=== PATIENT | female | born 1980 | race Caucasian/White ===

== ENCOUNTER 2021-05-10 10:15 | Outpatient (CLI) | payer BC, SELFPAY ==
--- NOTE | ~2021-05-10 | MM_ITS ---
EXAMINATION: MM screening nain BI w chiquita HISTORY: Screening TECHNIQUE: Craniocaudal and mediolateral oblique 3-D tomosynthesis images were obtained and synthetic 2-D images were generated. CAD analysis was submitted and interpreted. COMPARISON: No prior mammogram is available for comparison at this institution. BREAST PARENCHYMAL COMPOSITION: Breast composed of scattered areas of fibroglandular density FINDINGS: There are subareolar asymmetries in both breasts. There are no suspicious calcifications or focal architectural distortion. IMPRESSION: 1. Bilateral subareolar asymmetries. 2. Additional mammographic views and possible breast ultrasound are recommended. BI-RADS Category 0: Incomplete: Needs additional imaging evaluation. Reviewed, dictated and finalized at location A. AL EQUIPMENT INSTALLER AND SERVICER IMPRESSION: 1. Bilateral subareolar asymmetries. 2. Additional mammographic views and possible breast ultrasound are recommended . BI-RADS Category 0: Incomplete: Needs additional imaging evaluation.
== END 2021-05-10 10:16 | disposition home or self-care (01) ==
LOC: ANHIMG 10:17
PROVIDERS: PCP Family Medicine; Visit Provider Family Medicine
DX: Z12.31 Encounter for screening mammogram for malignant neoplasm of breast (principal); R92.8 Other abnormal and inconclusive findings on diagnostic imaging of breast
CPT/HCPCS: 77063; 77067

== ENCOUNTER 2021-05-27 12:31 | Outpatient (CLI) | payer BC, SELFPAY ==
--- NOTE | ~2021-05-27 | MMUS_ITS ---
EXAMINATION: MM diagnostic nain BI w chiquita, US breast BI complete HISTORY: Bilateral subareolar asymmetries reported on 05/10/2021 screening mammogram TECHNIQUE: Additional 3-D tomosynthesis images of both breasts were performed and synthetic 2-D image s were generated. CAD analysis was submitted and interpreted. High resolution complete bilateral renetta st ultrasound including all 4 quadrants and subareolar areas was performed. COMPARISON: 05/10/2021 bilateral screening mammogram FINDINGS: MAMMOGRAPHIC FINDINGS: There is a benign appearing approximately 4 x 5 mm circumscribed opacity in the inferior medial subar eolar area of the left breast. No suspicious mass, architectural distortion, malignant calcification, skin thickening or retraction of either breast is evident. ULTRASOUND: There is a 5 mm circumscribed sonolucency with through transmission posterior enhancement in the suba reolar area at 6:00, consistent with subareolar cyst. No suspicious mass or shadowing of either breast is noted otherwise. IMPRESSION: 1. Benign finding 2. Routine mammographic screening is recommended. BI-RADS Category 2: Benign finding(s). Reviewed, dictated and finalized at location A. IMPRESSION: 1. Benign finding 2. Routine mammographic screening is recommended. BI-RADS Category 2: Benign finding(s).
== END 2021-05-27 12:32 | disposition home or self-care (01) ==
PROVIDERS: PCP Family Medicine; Visit Provider Nurse Practitioner Gerontology
DX: R92.8 Other abnormal and inconclusive findings on diagnostic imaging of breast (principal)
CPT/HCPCS: 76641; 77062; 77066; G0279

== ENCOUNTER 2023-05-31 14:40 | Outpatient (CLI) | payer BC, SELFPAY ==
--- NOTE | ~2023-05-31 | NM_ITS ---
EXAMINATION: NM thyroid scan w uptake DATE: 06/01/2023 16:09 INDICATION: Other specified abnormal findings of blood chemistry. COMPARISON: None. TECHNIQUE: 334 microcuries [id number] was administered orally in capsule form. Scintigraphic images of th e thyroid gland were obtained at 24 hours. Thyroid uptake was calculated by the technologist. FINDINGS: The thyroid uptake is 18.8% (normal 10-30%), with the right lobe measuring 13.6% uptake and the left 5.4%. There is a masslike region of increased uptake in the mid to cephalad right lower lobe suggesti ve of possible hyperfunctioning nodule IMPRESSION: 1. Normal 24-hour thyroid iodine uptake. 2. Asymmetric thyroid scintigraphy with masslike region of more prominent activity at the mid to supe rior right thyroid lobe which suggests a possible hyperfunctioning nodule. Consider thyroid ultrasoun d for correlation. Reviewed, dictated and finalized at location A. IMPRESSION: 1. Normal 24-hour thyroid iodine uptake. 2. Asymmetric thyroid scintigraphy with masslike region of more prominent activ ity at the mid to superior right thyroid lobe which suggests a possible hyperfu nctioning nodule. Consider thyroid ultrasound for correlation.
== END 2023-05-31 14:41 | disposition home or self-care (01) ==
LOC: ANHIMG 14:46
PROVIDERS: PCP Family Medicine; Visit Provider Physician Assistant
DX: R79.89 Other specified abnormal findings of blood chemistry (principal)
CPT/HCPCS: 78014; A9516

== ENCOUNTER 2024-01-21 13:13 | Outpatient (CLI) | payer BC, SELFPAY ==
--- NOTE | ~2024-01-21 | US_ITS ---
EXAMINATION: 1. US FNA w image guidance 2. US FNA additional DATE: 01/21/2024 14:19 INDICATION: Nontoxic single thyroid nodule. TECHNIQUE: The procedure and its benefits and risks were discussed with the patient. Risks specifically discusse d included bleeding. The patient verbalized understanding of the risks and agreed to proceed. The nec k was prepped and draped in the usual sterile manner. 1% lidocaine was used for local anesthesia. 5 passes were made with a 25G needle into the lesion in right thyroid lobe under ultrasound guidance. The neck was prepped and draped in the usual sterile manner. 1% lidocaine was used for local anesthe sultana. 5 passes were made with a 25G needle into the lesion in left thyroid lobe under ultrasound guid ance. There were no immediate complications. FINDINGS: Grayscale ultrasound images demonstrate needles advanced into a 3.0 cm nodule in right thyroid lobe f or biopsy. Grayscale ultrasound images demonstrate needles advanced into a 1.9 cm nodule in left thyr oid lobe for biopsy. IMPRESSION: 1. Ultrasound-guided fine needle aspiration of a 3.0 cm nodule in right thyroid lobe. 2. Ultrasound-guided fine needle aspiration of a 1.9 cm nodule in left thyroid lobe. Reviewed, dictated and finalized at location A. NT TECHNOLOGIES ANALYST IMPRESSION: 1. Ultrasound-guided fine needle aspiration of a 3.0 cm nodule in right thyroi d lobe. 2. Ultrasound-guided fine needle aspiration of a 1.9 cm nodule in left thyroid lobe.
== END 2024-01-21 13:14 | disposition home or self-care (01) ==
PROVIDERS: PCP Family Medicine; Visit Provider Physician Assistant
DX: E04.1 Nontoxic single thyroid nodule (principal)
CPT/HCPCS: 10005; 10006; 88172; 88173; 88305

== ENCOUNTER 2024-04-11 15:27 | Outpatient (CLI) | payer BC, SELFPAY ==
--- NOTE | ~2024-04-11 | MM_ITS ---
EXAMINATION: MM screening nain BI w chiquita HISTORY: Screening TECHNIQUE: Craniocaudal and mediolateral oblique 3-D tomosynthesis images were obtained and synthetic 2-D images were generated. CAD analysis was submitted and interpreted. COMPARISON: Comparison to multiple prior studies sequentially, with oldest reviewed study dated 07/2021. BREAST PARENCHYMAL COMPOSITION: Not dense: There are scattered areas of fibroglandular density. FINDINGS: There is no evidence of suspicious mass, calcification, or architectural distortion to sugg est malignancy in either breast. There has been no suspicious interval change. IMPRESSION: 1. No mammographic evidence of malignancy. 2. Recommend routine screening mammography in one year. BI-RADS Category 1: Negative Reviewed, dictated and finalized at location B. [employer]
--- OUTSIDE RECORDS SUMMARY | 2024-04-11 15:31 | XMS_ITS | Referral Summary ---
Author Organization [facility] Physician Office Building [address] [place] [id number] Care Team Providers Care Starbucks Clerk Name Role Phone Shefali Araujo Primary Care Provid er Allergies No known active allergies Medications clobetasoL (TEMOVATE) 0.05 % cream APPLY TOPICALLY TO THE AFFECTED AREA DAILY 4 Active hydroCHLOROthia zide (HYDRODIURIL) 50 mg tablet Take 1 tablet (50 mg total) by mouth daily 4 Active irbesartan (AVAPRO) 300 mg tablet Take 1 tablet (300 mg total) by mouth daily 4 Active metFORMIN (GLUCOPHAGE) 1,000 mg tablet Take 1 tablet (1,000 mg total) by mouth 2 (two) times a day 4 Active metoprolol tartrate (LOPRESSOR) 25 mg immediate release tablet Take 1 tablet (25 mg total) by mouth 2 (two) times a day 4 Active metoprolol tartrate (LOPRESSOR) 25 mg immediate release tablet Take 1 tablet (25 mg total) by mouth 2 (two) times a day 4 Active rosuvastatin (CRESTOR) 5 mg tablet Take 1 tablet (5 mg total) by mouth nightly at bedtime. 4 Active rosuvastatin (CRESTOR) 5 mg tablet Take 1 tablet (5 mg total) by mouth nightly at bedtime. 4 Active spironolactone (ALDACTONE) 25 mg tablet Take 1 tablet (25 mg total) by mouth daily 4 Active semaglutide 0.25 mg or 0.5 mg (2 mg/3 mL) pen injector injectionIndica tions:Type 2 diabetes mellitus with hyperglycemia, without long-term current use of insulin (HCC) Inject 0.5 mg under the skin every 7 days 6 mL 4 Active Active Problems Problem Noted Date Diagnosed Date Subclinical hyperthyroidism 09/30/2023 Assessment & Plan (09/30/2023 4:27 PM CDT): With a possible right hot nodule I explained to the patient the younger patient has subclinical hyperthyroidism would not have indication for treatment Will update TSH, free T4 and free T3 As soon as free T4 and free T3 stay normal, there would would be no indication for treatment Thyroid ultrasound also requested to correlate with the possible hot thyroid area seen on thyroid scan Type 2 diabetes mellitus wit h hyperglycemia, without long-term current use of insulin 09/30/2023 Assessment & Plan (09/30/2023 4:28 PM CDT): Importance of diet and exercise was discussed Lowest metformin a 1000 mg once a day Start Ozempic 0.25 mg weekly x4 weeks and then increase to 0.5 mg weekly We provided the patient with 2 pen samples and she will call us in 4 to 6 weeks to let us know if she is tolerating well location before sending prescription Social History Tobacco Use Types Packs/Day Years Used Date Smoking Tobacco: Never Smokeless Tobacco: Never Tobacco Cessation:Counseling Given: Not Answered AUDIT-C Answer Date Recorded Q1: How often do you have a drink containing alcohol? Never 09/30/2023 Q2: How many drinks containi ng alcohol do you have on a typical day when you are drinking? Patient does not drink Q3: How often do you have si x or more drinks on one occasion? Never 09/30/2023 PHQ-2 Answer Date Recorded PHQ-2 Total Score (If total score is 3 or more points, staff should administer the PHQ-9) 0 09/30/2023 Personal Safety Answer Date Recorded Getting School Help Needed Not on file 06/08 Comments Unknown Sex and Gender Information Value Date Recorded Sex Assigned at Not on file Legal Sex Female 1:47 PM CDT Gender Identity Not on file Sexual Orientation Straight 09/30/2023 1: 53 PM CDT Last Filed Vital Signs Vital Sign Reading Time Taken Comments Blood Pressure 108/64 09/30/2023 1:53 PM CDT Pulse 72 09/30/2023 1:53 PM CDT Temperature - - Respiratory Rate 18 09/30/2023 1:53 PM CDT Oxygen Saturation - - Inhaled Oxygen Concentration - - Weight 103.6 kg (228 lb 6.4 oz) 09/30/2023 1:53 PM CDT Height 170.2 cm (5' 7 ) 09/30/2023 1:53 PM CDT Body Mass Index 35.77 09/30/2023 1:53 PM CDT Plan of Treatment Not on file Insurance [employer] Care Teams [employer] Clerk Relationship Specialty Start Date End Date Shefali Araujo PA [address] [place], [place] [phone] PCP - General Physician Room Server 06/09/23
--- OUTSIDE RECORDS SUMMARY | 2024-04-11 15:31 | XMS_ITS | Clinical Summary ---
Author Organization [facility] Physician Office Building [address] [place] [id number] Care Team Providers Care Delivery Rep Name Role Phone Shefali Araujo Primary Care [...] Orientation Straight 09/30/2023 1: 53 PM CDT Obstetrics History Last Filed Vital Signs Vital Sign Reading [...] 09/30/2023 1:53 PM CDT Plan of Treatment Health Maintenance Due Date Last Done Comments Albumin Creatinine Ratio, Urine 1979 Breast Cancer Screening-Mammogram 1979 Cervical Cancer Screening 1979 Colon Cancer Screening-Colonoscopy 1979 Hemoglobin A1C 1979 Hepatitis C Screening 1979 eGFR 1979 Dilated Eye Exam 1979 Foot Exam 1979 Lipid Panel 1979 Pneumococcal vaccine <65 (1 of 2 - PCV) 1985 DTaP/Tdap/Td Vaccine (1 - Tdap) 1990 Hepatitis B Screening 1997 Regular Well Visit/Exam 18-64 1997 Covid-19 Vaccine (2 - 2023-2 5 season) 2023 05/12/2020 Influenza Vaccine (#1) 2023 12/31/2019 Depression Screening 09/29/2024 09/30/2023 HPV Vaccines Aged Out No longer eligi ble based on patient's age to complete this topic Insurance Care Teams Delivery Rep Relationship Specialty Start Date End Date Shfeali Araujo PA [address] [facility] [address] [place] [address] PCP - General Physician Cytotechnologist/Cytology Supervisor 06/09/23
== END 2024-04-11 15:28 | disposition home or self-care (01) ==
PROVIDERS: PCP Family Medicine; Visit Provider Physician Assistant
DX: Z12.31 Encounter for screening mammogram for malignant neoplasm of breast (principal)
CPT/HCPCS: 77063; 77067

== ENCOUNTER 2024-10-02 01:33 | Day surgery (SDC) | payer BC, SELFPAY ==
[2024-09-19 16:10] VITALS: BMI 36.1
--- OUTSIDE RECORDS SUMMARY | 2024-10-02 01:36 | XMS_ITS | Clinical Summary ---
Author Organization [facility] Physician Office Building [address] [place] [phone] Care Team Providers Care Shelter Supervisor Name Role Phone Shefali Araujo Primary Care [...] 1:53 PM CDT Height 170.2 cm (5' 7) 09/30/2023 1:53 PM CDT Body Mass Index 35.77 09/30/2023 1:53 PM CDT Plan of Treatment Health Maintenance Due Date Last Done Comments Albumin Creatinine Ratio, Urine 1979 Breast Cancer Screening-Mammogram 1979 Cervical Cancer Screening 1979 Colon Cancer Screening-Colonoscopy 1979 Hemoglobin A1C 1979 Hepatitis C Screening 1979 eGFR 1979 Dilated Eye Exam 1979 Foot Exam 1979 Lipid Panel 1979 DTaP/Tdap/Td Vaccine (1 - Tdap) 1990 Hepatitis B Screening 1997 Regular Well Visit/Exam 18-64 1997 Pneumococcal vaccine <65 (1 of 2 - PCV) 1998 HPV Vaccines (1 - 3-dose SCDM series) 2006 Covid-19 Vaccine (2 - season) 11/07/202309/2020 Depression Screening 09/29/2024 09/30/2023 Influenza Vaccine (#1) 2024 12/31/2019 Insurance [facility] Care Teams Shelter Supervisor Relationship Specialty Start Date End Date Shefali Araujo PA [address] [facility] [address] [place] [address] PCP - General Physician Manual Qa Tester 06/09/23
--- OUTSIDE RECORDS SUMMARY | 2024-10-02 01:36 | XMS_ITS | Referral Summary ---
Author Organization [facility] Physician Office Building [address] [place] [phone] Care Team Providers Care Mechanical Engineering Lecturer Name Role Phone Shefali Araujo Primary Care [...] Plan of Treatment Not on file Insurance [facility] Care Teams Mechanical Engineering Lecturer Relationship Specialty Start Date End Date Shefali Araujo PA [address] [facility] [address] [place], [place] [phone] PCP - General Physician Board Hammer Operator 06/09/23
[2024-10-02 07:05] VITALS: BP 142/77; PULSE 86; RESP 18; TEMP 36.4; O2SAT 98; BMI 36.6
[2024-10-02 07:20] LABS: BEDSIDEPREGUCG Negative (Negative)
[2024-10-02] MEDS: LACTATED RINGERS 1,000 ML 150 ML IV CONT (07:28)
--- NOTE | 2024-10-02 07:39 | WPDANESEPPF ---
Anes - Initial Pre Proc Eval Procedure: Operation Date: 10/02/24 08:30 Proposed Procedures p Screening Colonoscopy - Chemo Caballero DO Date/Time: 10/02/24 07:39 Surgeon: Chemo Caballero DO Pre Op Diagnosis: Neoplasm screening Patient Data Age: 44 Gender: F Height: 1.7 m Weight: 106.1 kg Last Vital Signs Temp 36.4 C L 10/02/24 07:05 Pulse 86 10/02/24 07:05 Resp 18 10/02/24 07:05 BP 142/77 H 10/02/24 07:05 Pulse Ox 98 10/02/24 07:05 O2 Del Method Room Air 10/02/24 07:05 Allergies Allergy/AdvReac Type Severity Reaction Status Date / Time glimepiride AdvReac Intermediate hypoglycemi Verified 10/02/24 07:10 c Home Medications ?Medication ?Instructions ?Recorded ?Confirmed ?Type lancets (Microlet Lancet) #100 ea 03/24/21 10/02/24 Rx FreeStyle Lite Meter #1 ea 04/30/23 10/02/24 Rx (blood-glucose meter) blood sugar diagnostic (FreeStyle #100 ea 04/30/23 10/02/24 Rx Lite Strips) clobetasol 0.05 % topical cream 1 applic topical DAILY #45 grams 12/10/23 10/02/24 Rx metoprolol tartrate 25 mg tablet 25 mg PO BID #180 tabs 03/10/24 10/02/24 Rx sitagliptin phosphate 100 mg See Rx Instructions .Route 08/01/24 10/02/24 Rx tablet (Januvia) .COMPLEX #90 tabs irbesartan 300 mg tablet 300 mg PO DAILY #90 tabs 08/08/24 10/02/24 Rx metformin 500 mg tablet 500 mg PO DAILY #90 tabs 08/08/24 10/02/24 Rx rosuvastatin 5 mg tablet (Crestor) 5 mg PO DAILY #30 tabs 08/08/24 10/02/24 Rx spironolactone 25 mg tablet 25 mg PO DAILY #90 tabs 08/08/24 10/02/24 Rx cetirizine 10 mg capsule (Allergy 10 mg PO DAILY 09/19/24 10/02/24 History Relief (cetirizine)) Laboratory Tests 10/02/24 10/02/24 07:05 07:30 POC Capillary Glucose 167 H mg/dl (65-105) POC Urine HCG, Qual Negative (Negative) Patient hx anesthesia problems: none Family hx anesthesia problems: none Results Review: All pre-operative results and documents have been reviewed as part of the pre-operative evaluation. [facility] Past Medical History Medical History Hyperlipidemia Cholecystitis BMI 40.0-44.9, adult Benign essential HTN Surgical History Surgical History Hx of LASIK Hx laparoscopic cholecystectomy Family History Family History Mother Diabetes mellitus Hypertension Grandparent Diabetes mellitus Heart disease Social History Social History Social History: Smoking packs per day: 1 Smoking cigarettes per day: 20.0 Years smoked: 15 Smoking pack-years: 15.00 Smoking status: Former smoker Tobacco type: cigarettes and e-cigarettes/vaping Second hand tobacco smoke exposure: Yes Smoking end date: 06/17/22 Alcohol intake: current Alcohol use details: Socially Substance use: never Substance use type: does not use Do You Feel Safe in your Home?: Yes Lack of Transportation: No Lack of Food: Never True Current Housing: I Have Housing Concerned About Future Housing: No Difficulty Paying Gas/Electric Bills: No Difficulty Paying for Meds: No Currently Unemployed: No Education: Associate Degree Difficulty w/ Childcare or Family Care: No Living arrangements: with family Occupation/Education: occupation Gender identity (if verbalized by the patient): Female Sexual Orientation (if Verbalized by the Patient): Straight or Heterosexual Spiritual care concerns: No Anes - Eval Final PreProcedure Day of Procedure 10/02/24 07:39 Patient weight: obese Heart: regular rate and rhythm Lungs: clear to auscultation Airway: Mallampati scale class III Neurological: alert and oriented Last oral intake: >/= 8 hours ASA classification: III Emergent: no Anesthetic plan: proceed Anesthesia type and monitoring: general GIVS and standard monitoring Results Review: All pre-operative results and documents have been reviewed as part of the pre-operative evaluation. Informed Consent: The patient's anesthetic plan and its attendant risks and benefits were discussed with the patient/family/POA. Questions were solicited and answers provided to the satisfaction of the patient/family/POA.
--- NOTE | 2024-10-02 08:14 | PM.IMHP ---
H&P: HPI History of Present Illness Date/Time: 10/02/24 08:14 Chief Complaint: screening for colorectal cancer Narrative: this is a 44-year-old woman who presents for her 1st colonoscopy. She denies any hematochezia or melena. She denies family history of colon cancer. Review of Systems Review of Systems: All systems reviewed & are unremarkable except as noted in HPI and below Constitutional: Constitutional: Denies chills, Denies fever(s), Denies headache(s) and Denies weight loss Eyes: Eyes: Denies change in vision ENT: Denies dizziness, Denies headache(s), Denies neck mass and Denies throat swelling Cardiovascular: Cardiovascular: Denies chest pain, Denies lightheadedness and Denies dyspnea Respiratory: Respiratory: Denies cough, Denies dyspnea and Denies wheezing Gastrointestinal: Gastrointestinal: Denies abdominal pain, Denies change in bowel habits, Denies nausea and Denies vomiting Genitourinary: Genitourinary: Denies hematuria and Denies dysuria Musculoskeletal: Musculoskeletal: Reports as per HPI Integumentary/Breasts: Skin/Breast: Reports as per HPI Neurologic: Denies dizziness and Denies headache(s) Allergic/Immunologic: Allergic/Immunologic: Denies throat swelling and Denies wheezing PMFSH Past Medical History Medical History Hyperlipidemia Cholecystitis BMI 40.0-44.9, adult Benign essential HTN Surgical History Surgical History Hx of LASIK Hx laparoscopic cholecystectomy Family History Family History Mother Diabetes mellitus Hypertension Grandparent Diabetes mellitus Heart disease Social History Social History Social History: Smoking packs per day: 1 Smoking cigarettes per day: 20.0 Years smoked: 15 Smoking pack-years: 15.00 Smoking status: Former smoker Tobacco type: cigarettes and e-cigarettes/vaping Second hand tobacco smoke exposure: Yes Smoking end date: 06/17/22 Alcohol intake: current Alcohol use details: Socially Substance use: never Substance use type: does not use Do You Feel Safe in your Home?: Yes Lack of Transportation: No Lack of Food: Never True Current Housing: I Have Housing Concerned About Future Housing: No Difficulty Paying Gas/Electric Bills: No Difficulty Paying for Meds: No Currently Unemployed: No Education: Associate Degree Difficulty w/ Childcare or Family Care: No Living arrangements: with family Occupation/Education: occupation Gender identity (if verbalized by the patient): Female Sexual Orientation (if Verbalized by the Patient): Straight or Heterosexual Spiritual care concerns: No Meds Home Medications and Allergies Home Medications ?Medication ?Instructions ?Recorded ?Confirmed ?Type lancets (Microlet Lancet) #100 ea 03/24/21 10/02/24 Rx FreeStyle Lite Meter #1 ea 04/30/23 10/02/24 Rx (blood-glucose meter) blood sugar diagnostic (FreeStyle #100 ea 04/30/23 10/02/24 Rx Lite Strips) clobetasol 0.05 % topical cream 1 applic topical DAILY #45 grams 12/10/23 10/02/24 Rx metoprolol tartrate 25 mg tablet 25 mg PO BID #180 tabs 03/10/24 10/02/24 Rx sitagliptin phosphate 100 mg See Rx Instructions .Route 08/01/24 10/02/24 Rx tablet (Januvia) .COMPLEX #90 tabs irbesartan 300 mg tablet 300 mg PO DAILY #90 tabs 08/08/24 10/02/24 Rx metformin 500 mg tablet 500 mg PO DAILY #90 tabs 08/08/24 10/02/24 Rx rosuvastatin 5 mg tablet (Crestor) 5 mg PO DAILY #30 tabs 08/08/24 10/02/24 Rx spironolactone 25 mg tablet 25 mg PO DAILY #90 tabs 08/08/24 10/02/24 Rx cetirizine 10 mg capsule (Allergy 10 mg PO DAILY 09/19/24 10/02/24 History Relief (cetirizine)) Allergies Allergy/AdvReac Type Severity Reaction Status Date / Time glimepiride AdvReac Intermediate hypoglycemi Verified 10/02/24 07:10 c Vital Signs Vital Signs - 24 hr 10/02/24 07:05 Temperature 97.5 F L Pulse Rate 86 Respiratory Rate 18 Blood Pressure 142/77 H Pulse Oximetry 98 Oxygen Delivery Room Air Exam Const: General: no acute distress and alert Orientation/consciousness: patient oriented x3 HENMT: Head: normocephalic and atraumatic Ears: hearing grossly normal bilaterally Face/Nose/Sinus: Normal nares present Mouth: Yes Normal oral and palatal mucosa present Eyes: Periorbital: periorbital findings normal Sclera: sclerae normal EOM: EOMs intact bilaterally Neck: Neck: normal visual inspection, no lymphadenopathy and trachea midline Chest: Chest palpation & inspection: normal inspection of the chest Resp: Effort & Inspection: normal respiratory effort Auscultation: clear to auscultation bilaterally Cardio: Jugular venous distension: no JVD Rate: regular rate Rhythm: regular rhythm Heart sounds: S1 normal heart sound present and S2 normal heart sound present Peripheral pulses: Peripheral pulses 2+ throughout GI: Inspection: normal to inspection GI Palp: Yes Soft to palpation, No Tenderness to palpation present (GI), No Guarding due to palpation present (GI) and No Rebound tenderness present Percussion: Yes normal to percussion Auscultation: normal bowel sounds : General: Yes no CVA tenderness Back/Spine/Pelvis: Back: no CVA tenderness Neuro: General: patient oriented x3, no focal motor deficits and CN's II-XI intact bilaterally Cognition (Neuro): normal cognition Speech: normal speech Motor exam (neuro): 5/5 motor strength present throughout Extrem: General: capillary refill normal and no clubbing, cyanosis or edema Assessment and Plan Assessment and plan (1) Screening for colorectal cancer: Code(s): Z12.11 - Encounter for screening for malignant neoplasm of colon; Z12.12 - Encounter for screening for malignant neoplasm of rectum Status: Acute Assessment and Plan: I have recommended colonoscopy. I have discussed the procedure, risks, benefits, and alternatives. Questions were answered. Patient is agreeable to proceed.
[2024-10-02 08:37] VITALS: BP 134/76; PULSE 73; RESP 20; O2SAT 98
[2024-10-02 08:47] VITALS: BP 121/68; PULSE 68; RESP 15; O2SAT 98
[2024-10-02 08:57] VITALS: BP 140/82; PULSE 69; RESP 17; O2SAT 98
== END 2024-10-02 09:06 | disposition home or self-care (01) ==
PROVIDERS: Anesthesiology; PCP Family Medicine; Visit Provider Surgery
PROC: 0DJD8ZZ Inspection of Lower Intestinal Tract, Via Natural or Artificial Opening Endoscopic (ICD-10-PCS; CPT 45378; principal; 2024-10-02 08:30)
DX: Z12.11 Encounter for screening for malignant neoplasm of colon (principal); E78.5 Hyperlipidemia, unspecified; I10 Essential (primary) hypertension; E66.9 Obesity, unspecified; Z68.36 Body mass index [BMI] 36.0-36.9, adult; Z79.84 Long term (current) use of oral hypoglycemic drugs; Z98.890 Other specified postprocedural states; Z90.49 Acquired absence of other specified parts of digestive tract; Z87.891 Personal history of nicotine dependence; Z82.49 Family history of ischemic heart disease and other diseases of the circulatory system
CPT/HCPCS: 45378; 82948; J2704; J7120